=== PATIENT | male | born 2000 | race Caucasian/White ===

== ENCOUNTER 2020-07-04 17:32 | Outpatient (REF) | payer OTHER, SELFPAY | END 2020-07-04 17:33 | disposition home or self-care (01) | LOC: HO.LAB 17:32 | PROVIDERS: Visit Provider Internal Medicine | DX: Z20.828 Contact with and (suspected) exposure to other viral communicable diseases (principal) | CPT/HCPCS: C9803; U0003 ==

== ENCOUNTER 2021-06-13 16:27 | Outpatient (REF) | payer OTHER, SELFPAY | END 2021-06-13 16:28 | disposition home or self-care (01) | LOC: HO.LAB 16:27 | PROVIDERS: Visit Provider Physician Assistant Medical | DX: Z20.822 Contact with and (suspected) exposure to COVID-19 (principal); B34.9 Viral infection, unspecified | CPT/HCPCS: U0003; U0005 ==

== ENCOUNTER 2021-06-14 11:35 | Outpatient (REF) | payer OTHER, SELFPAY | END 2021-06-14 11:36 | disposition home or self-care (01) | LOC: HO.LNP 11:35 | PROVIDERS: Visit Provider Physician Assistant Medical | DX: Z13.89 Encounter for screening for other disorder (principal) | CPT/HCPCS: U0003; U0005 ==

== ENCOUNTER 2022-03-11 15:21 | Emergency (ER) | payer OTHER, SELFPAY ==
[2022-03-11 15:31] VITALS: BP 150/98
[2022-03-11 16:05] VITALS: BP 146/100; PULSE 79; RESP 18; TEMP 36.8; O2SAT 97; BMI 37.3
[2022-03-11 21:07] VITALS: BP 150/86; PULSE 77; RESP 16; TEMP 37; O2SAT 98
--- NOTE | 2022-03-11 21:36 | ED_ITS ---
[facility] - General Adult General Chief complaint: General Medical Stated complaint: HIGH BP 160/102,FELT VISION CLOSING Time Seen by Provider: 03/11/22 21:18 Source: patient Mode of arrival: ambulatory History of Present Illness HPI narrative: 21-year-old male with no significant past medical history, presenting to the ED complaining of anxiety/panic attack today while at work. Reports has been dealing with undiagnosed anxiety. States symptoms began with blurry vision, chest discomfort, and left arm tingling, lasting about 30 minutes. Admits to similar symptoms in the past with panic attacks. Reports symptomatic improvement at present. Denies headache, shortness of breath, weakness, numbness. Denies taking anticoagulation. Onset (ago): hour(s) Related Data Previous Rx's Medication Instructions Recorded albuterol sulfate 90 mcg/actuation 2 puff inhalation Q6H PRN 06/13/21 aerosol inhaler shortness of breath or wheezing #6.7 grams Allergies Allergy/AdvReac Type Severity Reaction Status Date / Time No Known Allergies Allergy Verified 06/13/21 15:30 Review of Systems Review of Systems: Constitutional: No Fever, No Chills, No Fatigue, No Malaise ENT/Mouth: No Ear Pain, No Nasal Congestion, No Sinus Pain, No Hoarseness, No sore throat, No Rhinorrhea, No Swallowing Difficulty Eyes: No Eye Pain, No Swelling, No Redness, No Vision Changes Cardiovascular: No Chest Pain, No SOB, No Edema, No Palpitations Respiratory: No Cough, No Sputum, No Wheezing, No Dyspnea Gastrointestinal: No Nausea, No Vomiting, No Diarrhea, No Abdominal pain Genitourinary: No Dysuria, No Urinary Frequency Musculoskeletal: No joint pain, No Myalgias, No Joint Swelling Skin: No Skin Lesions, No rash Neuro: No Weakness, No Numbness, + Paresthesias, No Loss of Consciousness, No Dizziness, No Headache Psych: + Anxiety/Panic, No Depression, No SI/HI/AH/VH, No Social Issues Yes all other systems are reviewed and are negative Constitutional: Constitutional: Reports as per [facility] Past Medical History Attestation statement: The following information was validated with the patient. Surgical History (Updated 10/18/20 @ 14:47 by Whitney Burton, RONALD, [employer]) History of adenoidectomy History of eye surgery Family History Family History (Updated 10/18/20 @ 14:50 by Whitney Burton, RMA, [employer]) Father Bipolar disorder Mother Marlow syndrome Thyroid disorder Maternal Grandmother Marlow syndrome Paternal Grandmother CAD (coronary artery disease) Maternal Aunt Marlow syndrome Maternal Uncle Marlow syndrome Brother No problems noted. Brother No problems noted. Sister No problems noted. Sister No problems noted. Sister No problems noted. Social History Social History Advance Directives: No Advance Directives Information Provided: No Physical Exam ED Vital Signs: Vital Signs - 24 hr 03/11/22 16:05 03/11/22 21:07 Temperature 98.3 F 98.6 F Pulse Rate 79 77 Respiratory Rate 18 16 Blood Pressure 146/100 H 150/86 H Pulse Oximetry 97 98 Oxygen Delivery Method Room Air Room Air BMI result Body Mass Index 37.3 Const General: cooperative, healthy appearing and no acute distress Orientation/consciousness: patient oriented x3 Limitations: no limitations HENMT Head: Yes normal to inspection and Yes atraumatic Ears: hearing grossly normal bilaterally General nose exam: Normal external nose present Face and sinus: Yes normal facial exam Eyes General: appearance normal, both eyes and all related structures Pupils: Equal, round and reactive pupils present EOM: EOMs intact bilaterally Neck Neck: Yes normal visual inspection, Yes no lymphadenopathy and Yes no meningeal signs Resp Effort & Inspection: normal respiratory effort and no respiratory distress Auscultation: clear to auscultation bilaterally, no crackles, no rales, no rhonchi and no wheezes Cardio Rate: regular rate Heart sounds: S1 normal heart sound present and S2 normal heart sound present Skin Rashes: no rashes Wounds: no wounds Neuro General: patient oriented x3, gait normal, tone normal, moves all extremities, no meningeal signs and no focal motor deficits Cranial nerves: Yes CN's II-XII intact bilaterally and Yes Equal, round and reactive pupils present Gait exam (Neuro): Normal gait present Extrem General: Yes normal to inspection Medical Decision Making MDM Narrative Medical decision making narrative: 21-year-old male with no significant past medical history, presenting to the ED complaining of anxiety/panic attack today while at work. On exam initially hypertensive, resolved without intervention, asymptomatic at present. Concern for anxiety/panic reaction. Symptoms atypical for ACS/PE or CVA/TIA Plan: EKG, recommended follow-up with therapy/PCP Medical Records Medical records reviewed: Yes I reviewed the patient's medical records. Lab Data Lab results reviewed: Yes I reviewed the patient's lab results. Discharge Plan Discharge Clinical Impression: Anxiety Patient Disposition: Home, Self-Care Instructions: Anxiety (ED) Additional Instructions: Your EKG looks unremarkable. It is likely due to her anxiety that you had the symptoms today, is recommended to follow up with her primary care doctor and a therapist. Please call to make an appointment. If symptoms persist or worsen/become unbearable return to the emergency department. Prescriptions: No Action albuterol sulfate 90 mcg/actuation HFA aerosol inhaler 2 puff inhalation Q6H PRN (Reason: shortness of breath or wheezing) Qty: 6.7 0RF Referrals: [facility] [Provider Group]
--- NOTE | 2022-03-11 21:36 | ECG_ITS ---
Test Reason : cp Blood Pressure : / mmHG Vent. Rate : 084 BPM Atrial Rate : 084 BPM P-R Int : 156 ms QRS Dur : 108 ms QT Int : 372 ms P-R-T Axes : 020 020 002 degrees QTc Int : 439 ms Normal sinus rhythm Inferior infarct , age undetermined Abnormal ECG No previous ECGs available Referred By: Cassie Castro Electronically Signed By:Feroz Gupta
--- NOTE | 2022-03-11 21:40 | ECG_ITS ---
Test Reason : cp Blood Pressure : / mmHG Vent. Rate : 085 BPM Atrial Rate : 085 BPM P-R Int : 154 ms QRS Dur : 112 ms QT Int : 370 ms P-R-T Axes : 024 019 001 degrees QTc Int : 440 ms Normal sinus rhythm Normal ECG No previous ECGs available Referred By: Cassie Catsro Electronically Signed By:Feroz Gupta
== END 2022-03-11 22:00 | disposition home or self-care (01) ==
PROVIDERS: Emergency Provider Internal Medicine; PCP Internal Medicine
DX: R07.89 Other chest pain (principal); F41.1 Generalized anxiety disorder; F43.0 Acute stress reaction; Z79.899 Other long term (current) drug therapy
CPT/HCPCS: 93005; 99283

== ENCOUNTER 2022-06-05 08:43 | Outpatient (REF) | payer OTHER, SELFPAY ==
[2022-06-05 11:17] LABS: MANUAL DIFF FLAG NO
[2022-06-05 11:24] LABS: Basophils Percent Auto 0.4 % (0-2); Eosinophils Absolute Auto 0.2 X10*3/uL (0.0-0.4); Eosinophils Percent Auto 2.5 % (0-4); Hematocrit 44.6 % (42.0-52.0); Hemoglobin 15.2 g/dl (14.0-18.0); Imm Gran Abs Auto 0.01 X10*3/uL (0.00-0.03); Imm Gran Pct Auto 0.1 % (0.0-0.4); Lymphocytes Absolute Auto 2.2 X10*3/uL (1.2-4.9); Lymphocytes Percent Auto 30.5 % (20-40); Mean Corpuscular HGB Conc 34.1 g/dl (31.0-36.0); Mean Corpuscular Hemoglobin 29.7 pg (27.0-33.0); Mean Corpuscular Volume 87.3 fL (80.0-98.0); Mean Platelet Volume 9.5 fL (9.4-12.4); Monocytes Absolute Auto 0.7 X10*3/uL (0.1-1.2); Monocytes Percent Auto 9.5 % (2-11); Neutrophils Absolute Auto 4.1 x10*3/uL (2.0-8.3); Platelet Count 277 X10*3/uL (160-400); Red Blood Count 5.11 X10*6/uL (4.60-5.80); Red Cell Distribution Width 11.7 % (11.0-16.0); White Blood Count 7.2 X10*3/uL (4.8-10.8)
[2022-06-05 11:44] LABS: Alanine Aminotransferase 38 U/L (0-40); Aspartate Amino Transferase 27 U/L (5-37); Cholesterol 189 mg/dL; HDL Cholesterol 41 mg/dL; LDL Cholesterol Calculated 130 mg/dl; Triglycerides 92 mg/dL
== END 2022-06-05 08:44 | disposition home or self-care (01) ==
LOC: HO.HMGCLDS 08:43
PROVIDERS: PCP Internal Medicine; Visit Provider Internal Medicine
DX: Z00.01 Encounter for general adult medical examination with abnormal findings (principal)
CPT/HCPCS: 36415; 80061; 84450; 84460; 85025

== ENCOUNTER 2023-03-27 11:00 | Outpatient (AMB) | payer OTHER, SELFPAY ==
--- NOTE | 2023-03-27 11:34 | AM.OFFWIN_ITS ---
Intake Vital Signs 03/27/23 11:37 BP 140/80 H Blood Pressure Location Rt brachial Position Standing Pulse 88 Pulse Source Pulse Oximeter Pulse Oximetry (%) 98 Oxygen Delivery Method Room Air Intake Visit Reasons: EP, Low back, right leg pain Intake Note: patient here because he was playing basketball and was fine for a while but then reached for the ball and felt like he pulled something he is now experiencing pain in lower back and pain radiates to the leg. Patient Tobacco Use Status: Former Tobacco user Allergies No Known Allergies Allergy (Verified 03/27/23 11:36) Do you need a note to return to daycare/school/sports/work: Yes HPI HPI Comments History of Present Illness Details Point 3-year-old male presents for back pain. Patient states he was lifting and lifting weights yesterday. Afterwards she went and played basketball. 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 He can use improved trismus noted he with some relief this morning use a little bit pressure in his left leg. He denies any IVDU family history of malignancy, weight loss, immunosuppression, she fever or chills, or bladder or bowel symptoms. [facility] Medical History (Updated 06/05/22 @ 08:56 by Shayla Holland MD) Family history of Marlow syndrome Generalized anxiety disorder Obesity (BMI 35.0-39.9 without comorbidity) Refused influenza vaccine Surgical History History of adenoidectomy History of eye surgery Family History Father Bipolar disorder Mother Marlow syndrome Thyroid disorder Mental health disorder Maternal Grandmother Marlow syndrome Paternal Grandmother CAD (coronary artery disease) Maternal Aunt Marlow syndrome Maternal Uncle Marlow syndrome Brother No problems noted. Brother No problems noted. Sister Mental health disorder Sister No problems noted. Sister No problems noted. Social History Housing: Apartment Patient Tobacco Use Status: Former Tobacco user e-Cigarette/Vaping Use: Never Used Current occupational status: employed Cognitive needs: No Hearing needs: No Vision needs: No Review of Systems Const All systems reviewed & are unremarkable except as noted in HPI and below Reports as per HPI Musc Reports back pain Physical Exam Vital Signs: Last Vital Signs Pulse 88 03/27/23 11:37 BP 140/80 H 03/27/23 11:37 Pulse Ox 98 03/27/23 11:37 Oxygen Delivery Method Room Air 03/27/23 11:37 Const General: cooperative, healthy appearing, no acute distress and well developed Back/Spine/Pelvis Other: No midline tenderness to palpation. Assessment & Plan Assessment & Plan (1) Back pain: Code(s): M54.9 - Dorsalgia, unspecified Plan VSS. Exam patient presents alert and oriented no acute distress his mood unremarkable noted above. Patient likely several mechanical back pain. Recommend conservative treatment utilizing lidocaine patches NSAIDs rest and stretching. Discharge instructions, follow up and treatment are discussed with patient in my usual fashion. Alternatives in treatment are also discussed. The patient will return for worsening symptoms or as needed. Advised that any labs/imaging ordered will be followed up on and contact made if further treatment needed. Counseled that patient's condition may require further evaluation and/or treatment. Symptoms of concern for worsening disorder discussed in detail in my customary manner. Patient does verbalize understanding of the plan, there are no apparent barriers to communication. The patient is given the opportunity to ask questions and have them answered to his/her satisfaction Coding Level of Care Code Est Pt Level 2 (80586) Diagnoses Back pain M54.9
[2023-03-27 11:37] VITALS: BP 140/80; PULSE 88; O2SAT 98
== END 2023-03-27 12:07 | disposition home or self-care (01) ==
PROVIDERS: PCP Internal Medicine; Visit Provider Physician Assistant
DX: M54.9 Dorsalgia, unspecified (principal)
CPT/HCPCS: 99212

== ENCOUNTER 2023-08-15 10:32 | Outpatient (AMB) | payer OTHER, SELFPAY ==
--- NOTE | 2023-08-15 10:42 | MHC.PC.OV ---
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 Allergies No Known Allergies Allergy (Verified 08/19/23 03:07) Medication List - Last Reconciled 08/19/23 by Shayla Holland MD albuterol sulfate 90 mcg/actuation 2 puffs inhalation Q6H PRN Tobacco use date assessed: 08/15/23 Dental Screening Dental Screen Date: 08/15/23 Did you have a dental visit in the last 12 months?: Yes Did you have a dental problem in the last 6 months where you did not have access to dental care?: No Was dental information given to patient?: Patient has dentist HPI Follow up on anxiety HPI Details 23-year-old male with history of anxiety disorder, has been seen by psychiatry and therapy in the past, and has been prescribed medications but patient refusing to take it, here today needing an FMLA completed due to frequent anxiety attacks which has made him miss work or leave work early multiple times this year. He was just recently seen at the ER for another episode of acute anxiety attack. Patient states that there is no triggers for these occurrences, has been trying to manage it on his own, but does not want to start any medications at present . However he is willing to see a therapist and get counseling. [facility] Medical History Refused influenza vaccine Obesity (BMI 35.0-39.9 without comorbidity) Family history of Marlow syndrome Generalized anxiety disorder Surgical History History of eye surgery History of adenoidectomy Family History Father Bipolar disorder Mother Marlow syndrome Thyroid disorder Mental health disorder Maternal Grandmother Marlow syndrome Paternal Grandmother CAD (coronary artery disease) Maternal Aunt Marlow syndrome Maternal Uncle Marlow syndrome Brother No problems noted. Brother No problems noted. Sister Mental health disorder Sister No problems noted. Sister No problems noted. Social History Housing: Apartment Patient Tobacco Use Status: Former Tobacco user e-Cigarette/Vaping Use: Never Used service: No Current occupational status: employed Current occupation: [employer] Cognitive needs: No Hearing needs: No Vision needs: No Questionnaire PHQ-9 Over the last 2 weeks, how often have you been bothered by any of the following problems? 1. Little interest or pleasure in doing things: several days 2. Feeling down, depressed, or hopeless: several days 3. Trouble falling or staying asleep, or sleeping too much: nearly every day 4. Feeling tired or having little energy: more than half the days 5. Poor appetite or overeating: not at all 6. Feeling bad about yourself - or that you are a failure or have let yourself or your family down: more than half the days 7. Trouble concentrating on things, such as reading the newspaper or watching television: nearly every day 8. Moving or speaking so slowly that other people could have noticed. Or the opposite - being so fidgety or restless that you have been moving around a lot more than usual: nearly every day 9. Thoughts that you would be better off or of hurting yourself in some way: not at all Total score: 15 Depression Screening Interpretation: Positive Depression Screening Done: Yes 85200 - PHQ-9 Billing: Yes Source: Developed by Drs. Brian Boyle, Kacey Cruz, Abel Montes and colleagues, with an educational margaret from [facility]. Thrive Questionnaire Date Thrive assessed: 08/15/23 I am a: Patient What is your living situation today?: I have a steady place to live Within the past 12 months, did the food you bought not last and you didn't have the money to get more?: Sometimes True Within the past 12 months, did you worry whether your food would run out before you got money to buy more?: Never true Do you have trouble paying for medicines?: No Do you have trouble getting transportation to medical appointments?: No Do you have trouble paying your heating and electricity bill?: No Do you have trouble taking care of your child, family member or friend?: No Do you have trouble with day-to-day activities such as bathing, preparing meals, shopping, managing finances, etc.?: Yes Are you currently unemployed and looking for a job?: No Are you interested in more education?: No Please select the resources that you would like help with: None Currently or been in a relationship where the following occur: no concerns reported BRE-7 AMB Questionnaire BRE-7 Date BRE - 7 assessed: 08/15/23 Feeling nervous, anxious, or on edge: 3 = Nearly every day Not being able to stop or control worryin = Nearly every day Worrying too much about different things: 3 = Nearly every day Trouble relaxin = More than half the days Being so restless that it is hard to sit still: 2 = More than half the days Becoming easily annoyed or irritable: 3 = Nearly every day Feeling afraid as if something awful might happen: 2 = More than half the days Total BRE-7 score (0-4 normal; 5-9 mild; 10-14 moderate; 15-21 severe): 18 Source: Developed by Drs. Brian Boyle, Kacey Cruz, Abel Montes and colleagues, with an educational margaret from [facility]. BRE-7 Assessment Billing BRE-7 Assessment Tool: BRE-7 Assessment 41797 Review of Systems Const Denies body aches, Denies fatigue, Denies fever(s), Denies headache(s) and Denies weakness Eyes Denies change in vision ENT Denies dizziness and Denies headache(s) Card Denies chest pain, Denies lightheadedness, Denies palpitations and Denies dyspnea Resp Denies cough and Denies dyspnea GI Denies abdominal pain, Denies change in bowel habits and Denies heartburn Denies hematuria, Denies difficulty urinating, Denies dysuria, Denies urinary frequency and Denies urinary urgency Skin/Breast Denies rash Neuro Denies dizziness, Denies headache(s) and Denies weakness Psych Reports as per HPI Endo Denies fatigue, Denies polydipsia, Denies polyuria and Denies palpitations Phillip/Lymph Reports no additional complaints Aller/Immun Reports no additional complaints Physical exam (Primary Care) Vital Signs: Last Vital Signs Pulse 68 08/15/23 10:43 BP 122/74 08/15/23 10:43 Pulse Ox 98 08/15/23 10:43 BMI result Body Mass Index 37.3 Tobacco/Smoking Status: Tobacco use Status Tobacco use date assessed 08/15/23 08/15/23 10:53 Patient Tobacco Use Status Former Tobacco user 08/15/23 10:43 e-Cigarette/Vaping Use Never Used 08/15/23 10:43 PHQ-9: PHQ-9 Score PHQ-9: Total score 15 08/15/23 11:05 Depression Screening Interpretation: Positive Thrive Assessment: Date of Thrive Assessment Date Thrive assessed 08/15/23 08/15/23 11:05 Currently or been in a relationship where the following occur: no concerns reported Const Other: Alert oriented x3, no acute cardiorespiratory distress noted, obese Orientation/consciousness: patient oriented x3 HENMT Head: Yes normocephalic Ears: external ears normal General nose exam: Normal external nose present Face and sinus: Yes face symmetric Mouth: Normal oral and palatal mucosa present and moist mucous membranes Neck Neck: Yes full ROM, Yes no lymphadenopathy and Yes supple Thyroid: Thyroid normal Resp Effort & Inspection: normal respiratory effort and able to speak in complete sentences Auscultation: clear to auscultation bilaterally Cardio Palpation: normal PMI Rate: regular rate Rhythm: regular rhythm Heart sounds: S1 normal heart sound present and S2 normal heart sound present GI Inspection: Yes obesity Palpation (GI): Soft to palpation, nontender, no guarding and no masses Auscultation: normal bowel sounds Back/Spine/Pelvis Back: No back tenderness Skin General skin exam: no rashes or lesions noted Neuro General: patient oriented x3, gait normal, tone normal, moves all extremities, Normal light touch and pain sensation, no focal motor deficits and CN's II-XI intact bilaterally Cognition (Neuro): normal cognition Gait exam (Neuro): Normal gait present Extrem General: Yes full ROM, Yes no joint enlargement, Yes no pedal edema and Yes normal gait Psych Appearance: grossly normal and well kempt Mental Status: mental status grossly normal Speech and movement: Normal speech and movement present Affect: normal affect Attitude: cooperative Thought process: Normal thought process present Assessment and Plan Assessment & Plan (1) Generalized anxiety disorder: Code(s): F41.1 - Generalized anxiety disorder Plan: FMLA form completed. Patient declines starting medications of present time but is open to getting counseling and therapy referred to [facility] for assistance in getting in to see a therapist Coding Level of Care Code Est Pt Level 3 (35441) Diagnoses Generalized anxiety disorder F41.1 Additional Codes BRE-7 Assessment Billing - BRE-7 Assessment Tool: BRE-7 Assessment 67672 ([id number])
[2023-08-15 10:43] VITALS: BP 122/74; PULSE 68; O2SAT 98; BMI 37.3
== END 2023-08-15 13:00 | disposition home or self-care (01) ==
PROVIDERS: PCP Internal Medicine; Visit Provider Internal Medicine
DX: F41.1 Generalized anxiety disorder (principal)
CPT/HCPCS: 96127; 99213

== ENCOUNTER 2024-01-29 13:55 | Outpatient (AMB) | payer BC, SELFPAY ==
[2024-01-29 13:57] VITALS: BP 132/80; PULSE 91; O2SAT 98; BMI 37.9
--- NOTE | 2024-01-29 13:57 | A.OFFPC_ITS ---
Vital Signs 01/29/24 13:57 Height 5 ft 10 in Weight 264 lb BMI 37.9 BP 132/80 Blood Pressure Location Lt brachial Position Sitting Pulse 91 Pulse Source Pulse Oximeter Pulse Oximetry (%) 98 Oxygen Delivery Method Room Air Intake Visit Reasons: PE Intake Note: pt here for annual PE. c/o rt leg pain Allergies No Known Allergies Allergy (Verified 01/29/24 14:07) Medication List - Last Reconciled 01/29/24 by Shayla Holland MD albuterol sulfate 90 mcg/actuation 2 puffs inhalation Q6H PRN Tobacco use date assessed: 01/29/24 Dental Screening Dental Screen Date: 01/29/24 Did you have a dental visit in the last 12 months?: No Did you have a dental problem in the last 6 months where you did not have access to dental care?: No Was dental information given to patient?: Patient has dentist HPI PE HPI Details 23-year-old male with history of anxiety disorder, currently asymptomatic, here today for physical exam. . Patient has been feeling well with no complaints at present time. He has positive family history for Marlow syndrome, mother and maternal grandmother, maternal aunt and uncle. He was seen by Dr. Lucia and was advised to either get a colonoscopy or do genetic jimmy ting. Patient opts to do genetic testing and decide further course of action depending on results, but has not yet had test done. Complains of pain and stiffness in right lower back, currently shooting to the buttock area present for the last week. No history of trauma or strenuous exertion. [facility] Medical History (Updated 02/04/24 @ 16:05 by Shayla Holland MD) Lumbago with sciatica, right side Refused influenza vaccine Obesity (BMI 35.0-39.9 without comorbidity) Family history of Marlow syndrome Generalized anxiety disorder Surgical History History of eye surgery History of adenoidectomy Family History Father Bipolar disorder Mother Marlow syndrome Thyroid disorder Mental health disorder Maternal Grandmother Marlow syndrome Paternal Grandmother CAD (coronary artery disease) Maternal Aunt Marlow syndrome Maternal Uncle Marlow syndrome Brother No problems noted. Brother No problems noted. Sister Mental health disorder Sister No problems noted. Sister No problems noted. Social History Housing: Apartment Patient Tobacco Use Status: Never used Tobacco e-Cigarette/Vaping Use: Never Used service: No Current occupational status: employed Current occupation: [employer] Cognitive needs: No Hearing needs: No Vision needs: No Questionnaire PHQ-9 Over the last 2 weeks, how often have you been bothered by any of the following problems? 1. Little interest or pleasure in doing things: not at all 2. Feeling down, depressed, or hopeless: not at all 3. Trouble falling or staying asleep, or sleeping too much: not at all 4. Feeling tired or having little energy: not at all 5. Poor appetite or overeating: not at all 6. Feeling bad about yourself - or that you are a failure or have let yourself or your family down: not at all 7. Trouble concentrating on things, such as reading the newspaper or watching television: not at all 8. Moving or speaking so slowly that other people could have noticed. Or the opposite - being so fidgety or restless that you have been moving around a lot more than usual: not at all 9. Thoughts that you would be better off or of hurting yourself in some way: not at all Total score: 0 Depression Screening Interpretation: Negative Depression Screening Done: Yes 87697 - PHQ-9 Billing: Yes Source: Developed by Drs. Brian Boyle, Kacey Cruz, Abel Montes and colleagues, with an educational margaret from [email or web address]. Thrive Questionnaire Date Thrive assessed: 01/29/24 I am a: Patient What is your living situation today?: I have a steady place to live Within the past 12 months, did the food you bought not last and you didn't have the money to get more?: Never true Within the past 12 months, did you worry whether your food would run out before you got money to buy more?: Never true Do you have trouble paying for medicines?: No Do you have trouble getting transportation to medical appointments?: No Do you have trouble paying your heating and electricity bill?: No Do you have trouble taking care of your child, family member or friend?: No Do you have trouble with day-to-day activities such as bathing, preparing meals, shopping, managing finances, etc.?: No Are you currently unemployed and looking for a job?: No Are you interested in more education?: No Please select the resources that you would like help with: None Currently or been in a relationship where the following occur: no concerns reported THRIVE Score: 0 AUDIT C Alcohol Use Questionnaire (AUDIT-C) 1. How often do you have a drink containing alcohol?: Never Total Score: 0 BRE-7 AMB Questionnaire BRE-7 Date BRE - 7 assessed: 01/29/24 Feeling nervous, anxious, or on edge: 1 = Several days Not being able to stop or control worryin = Not at all Worrying too much about different things: 0 = Not at all Trouble relaxin = Not at all Being so restless that it is hard to sit still: 0 = Not at all Becoming easily annoyed or irritable: 1 = Several days Feeling afraid as if something awful might happen: 0 = Not at all Total BRE-7 score (0-4 normal; 5-9 mild; 10-14 moderate; 15-21 severe): 2 Source: Developed by Drs. Brian Boyle, Kacey Cruz, Abel Montes and colleagues, with an educational margaret from [email or web address]. BRE-7 Assessment Billing BRE-7 Assessment Tool: BRE-7 Assessment 14679 Review of Systems Const Denies body aches, Denies fatigue, Denies fever(s), Denies headache(s) and Denies weakness Eyes Denies change in vision ENT Denies dizziness and Denies headache(s) Card Denies chest pain, Denies lightheadedness, Denies palpitations and Denies dyspnea Resp Denies cough and Denies dyspnea GI Denies abdominal pain, Denies change in bowel habits and Denies heartburn Denies hematuria, Denies difficulty urinating, Denies dysuria, Denies urinary frequency and Denies urinary urgency Musc Reports as per HPI Skin/Breast Denies rash Neuro Denies dizziness, Denies headache(s) and Denies weakness Psych Reports as per HPI Endo Denies fatigue, Denies polydipsia, Denies polyuria and Denies palpitations Phillip/Lymph Reports no additional complaints Aller/Immun Reports no additional complaints Physical exam (Primary Care) Vital Signs: Last Vital Signs Pulse 91 01/29/24 13:57 BP 132/80 01/29/24 13:57 Pulse Ox 98 01/29/24 13:57 Oxygen Delivery Method Room Air 01/29/24 13:57 BMI result Body Mass Index 37.9 Tobacco/Smoking Status: Tobacco use Status Tobacco use date assessed 01/29/24 01/29/24 13:59 Patient Tobacco Use Status Never used Tobacco 01/29/24 14:07 e-Cigarette/Vaping Use Never Used 01/29/24 13:59 PHQ-9: PHQ-9 Score PHQ-9: Total score 0 01/29/24 14:07 Depression Screening Interpretation: Negative Thrive Assessment: Date of Thrive Assessment Date Thrive assessed 01/29/24 01/29/24 14:07 Currently or been in a relationship where the following occur: no concerns reported Const Other: Alert oriented x3, no acute cardiorespiratory distress noted, obese Orientation/consciousness: patient oriented x3 HENMT Head: Yes normocephalic Ears: external ears normal General nose exam: Normal external nose present Face and sinus: Yes face symmetric Mouth: Normal oral and palatal mucosa present and moist mucous membranes Eyes General: appearance normal, both eyes and all related structures Neck Neck: Yes full ROM, Yes no lymphadenopathy and Yes supple Thyroid: Thyroid normal Chest Chest palpation & inspection: normal inspection of the chest Resp Effort & Inspection: normal respiratory effort and able to speak in complete sentences Auscultation: clear to auscultation bilaterally Cardio Palpation: normal PMI Rate: regular rate Rhythm: regular rhythm Heart sounds: S1 normal heart sound present and S2 normal heart sound present GI Inspection: Yes obesity Palpation (GI): Soft to palpation, nontender, no guarding and no masses Auscultation: normal bowel sounds Male General Exam: Yes normal external exam Back/Spine/Pelvis Thoracic/Lumbar Spine: straight leg raise negative bilaterally and paraspinal muscle tenderness on the right in the mid lumbar Skin General skin exam: no rashes or lesions noted Neuro General: patient oriented x3, gait normal, tone normal, moves all extremities, Normal light touch and pain sensation, no focal motor deficits and CN's II-XI intact bilaterally Cognition (Neuro): normal cognition Gait exam (Neuro): Normal gait present Extrem General: Yes full ROM, Yes no joint enlargement, Yes no pedal edema and Yes normal gait Psych Appearance: grossly normal and well kempt Mental Status: mental status grossly normal Speech and movement: Normal speech and movement present Affect: normal affect Attitude: cooperative Thought process: Normal thought process present Assessment and Plan Assessment & Plan (1) Annual visit for general adult medical examination with abnormal findings: Code(s): Z00.01 - Encounter for general adult medical examination with abnormal findings Plan: Will check appropriate labs. Recommended dental visit every 6 months and regular eye exams, at least every 2 years. . Instructed to do self-testicular exam check for any mass does not want to get flu vaccine. (2) Family history of Marlow syndrome: Code(s): Z80.0 - Family history of malignant neoplasm of digestive organs Plan: Advised to go ahead and get genetic testing, and will proceed from there whether he needs to get earlier colonoscopy screenings, referred to Oncology for genetic testing (3) Obesity (BMI 35.0-39.9 without comorbidity): Code(s): E66.9 - Obesity, unspecified Plan: Discussed need to increase activity and lose weight . Recommended focusing on improving your health instead of dieting. : Try Mediterranean diet, limit foods high in fat, sugar, and calories, eat slowly, pay attention to portion sizes, plan your meals ahead of time, start regular physical activity 150 minutes of moderate intensity exercise or 90 minutes/week of vigorous exercise (4) Lumbago with sciatica, right side: Code(s): M54.41 - Lumbago with sciatica, right side Qualifiers: Chronicity: acute Back pain laterality: right Qualified Code(s): M54.41 - Lumbago with sciatica, right side Plan: Referred for physical therapy Orders: Orders Complete Blood Count Auto Diff 02/03/24 E66.9 - Obesity, unspecified, M54.41 - Lumbago with sciatica, right side, Z00.01 - Encounter for general adult medical examination with abnormal findings, Z13.1 - Encounter for screening for diabetes mellitus, Z13.220 - Encounter for screening for lipoid disorders, Z80.0 - Family history of malignant neoplasm of digestive organs Lipid Panel 02/03/24 E66.9 - Obesity, unspecified, M54.41 - Lumbago with sciatica, right side, Z00.01 - Encounter for general adult medical examination with abnormal findings, Z13.1 - Encounter for screening for diabetes mellitus, Z13.220 - Encounter for screening for lipoid disorders, Z80.0 - Family history of malignant neoplasm of digestive organs CT NG by PCR 02/03/24 Z00.01 - Encounter for general adult medical examination with abnormal findings, Z11.3 - Encounter for screening for infections with a predominantly sexual mode of transmission Basic Metabolic Panel Fasting 02/03/24 E66.9 - Obesity, unspecified, M54.41 - Lumbago with sciatica, right side, Z00.01 - Encounter for general adult medical examination with abnormal findings, Z13.1 - Encounter for screening for diabetes mellitus, Z13.220 - Encounter for screening for lipoid disorders, Z80.0 - Family history of malignant neoplasm of digestive organs Vitamin D 25-OH Total 02/03/24 E66.9 - Obesity, unspecified, M54.41 - Lumbago with sciatica, right side, Z00.01 - Encounter for general adult medical examination with abnormal findings, Z13.1 - Encounter for screening for diabetes mellitus, Z13.220 - Encounter for screening for lipoid disorders, Z80.0 - Family history of malignant neoplasm of digestive organs PT Evaluation and Treatment 01/29/24 M54.41 - Lumbago with sciatica, right side Referrals Hematology & Oncology Referral Z80.0 - Family history of malignant neoplasm of digestive organs Coding Level of Care Code Est Pt Prev Care [id number]([id number]) Diagnoses Annual visit for general adult medical examination with abnormal findings Z00.01 Family history of Marlow syndrome Z80.0 Obesity (BMI 35.0-39.9 without comorbidity) E66.9 Acute right-sided low back pain with right-sided sciatica M54.41 Chronicity: acute Back pain laterality: right Additional Codes BRE-7 Assessment Billing - BRE-7 Assessment Tool: BRE-7 Assessment 52514 ([id number])
== END 2024-01-29 14:30 | disposition home or self-care (01) ==
PROVIDERS: PCP Internal Medicine; Visit Provider Internal Medicine
DX: Z00.00 Encounter for general adult medical examination without abnormal findings (principal); Z80.0 Family history of malignant neoplasm of digestive organs; E66.9 Obesity, unspecified; Z68.37 Body mass index [BMI] 37.0-37.9, adult; M54.41 Lumbago with sciatica, right side
CPT/HCPCS: 99395

== ENCOUNTER 2024-02-03 08:07 | Outpatient (REF) | payer BC, SELFPAY ==
[2024-02-03 10:31] LABS: MANUAL DIFF FLAG NO
[2024-02-03 10:49] LABS: Basophils Percent Auto 0.6 % (0-2); Eosinophils Absolute Auto 0.2 X10*3/uL (0.0-0.4); Eosinophils Percent Auto 3.1 % (0-4); Hematocrit 47.8 % (42.0-52.0); Hemoglobin 16.2 g/dl (14.0-18.0); Imm Gran Abs Auto 0.02 X10*3/uL (0.00-0.03); Imm Gran Pct Auto 0.4 % (0.0-0.4); Lymphocytes Absolute Auto 1.8 X10*3/uL (1.2-4.9); Lymphocytes Percent Auto 33.3 % (20-40); Mean Corpuscular HGB Conc 33.9 g/dl (31.0-36.0); Mean Corpuscular Hemoglobin 29.9 pg (27.0-33.0); Mean Corpuscular Volume 88.2 fL (80.0-98.0); Mean Platelet Volume 9.7 fL (9.4-12.4); Monocytes Absolute Auto 0.5 X10*3/uL (0.1-1.2); Monocytes Percent Auto 9.6 % (2-11); Neutrophils Absolute Auto 2.9 x10*3/uL (2.0-8.3); Platelet Count 269 X10*3/uL (160-400); Red Blood Count 5.42 X10*6/uL (4.60-5.80); Red Cell Distribution Width 11.8 % (11.0-16.0); White Blood Count 5.4 X10*3/uL (4.8-10.8)
[2024-02-03 11:24] LABS: Anion Gap 11 (12-20); Carbon Dioxide 27 mmol/L (22-29); Chloride 109 mmol/L (96-108); Potassium 4.2 mmol/L (3.3-5.1); Sodium 143 mmol/L (135-145)
[2024-02-03 11:25] LABS: Calcium 9.7 mg/dL (8.4-10.2); Cholesterol 178 mg/dL (<200); Estimated Glomerular Filt Rate > 60; Glucose Fasting 101 mg/dL (60-99); HDL Cholesterol 37 mg/dL (>40); LDL Cholesterol Calculated 121 mg/dL (<100); Triglycerides 102 mg/dL (<150)
[2024-02-03 11:32] LABS: Vitamin D 25-OH Total 81.6 ng/mL (>30)
[2024-02-03 11:49] LABS: Blood Urea Nitrogen 17 mg/dL (9-16)
[2024-02-03 13:10] LABS: CT PCR NOT DETECTED (Not Detect.); NG PCR NOT DETECTED (Not Detect.)
== END 2024-02-03 08:08 | disposition home or self-care (01) ==
LOC: HO.HMGCLDS 08:07
PROVIDERS: PCP Internal Medicine; Visit Provider Internal Medicine
DX: Z00.01 Encounter for general adult medical examination with abnormal findings (principal); M54.41 Lumbago with sciatica, right side; Z11.3 Encounter for screening for infections with a predominantly sexual mode of transmission; Z13.1 Encounter for screening for diabetes mellitus; Z13.220 Encounter for screening for lipoid disorders; Z80.0 Family history of malignant neoplasm of digestive organs; E66.9 Obesity, unspecified
CPT/HCPCS: 0353U; 80048; 80061; 82306; 85025